=== PATIENT | female | born 1980 | race Caucasian/White ===

== ENCOUNTER 2017-09-29 11:04 | Emergency (ER) | payer OTHER ==
[2017-09-29] MEDS: HYDROCODONE/APAP (10/325) TAB PO (11:43)
[2017-09-29] MEDS: IBUPROFEN 800 MG TAB PO (11:43)
[2017-09-29] MEDS: ONDANSETRON (ODT) 4 MG TAB ODT (11:43)
== END 2017-09-29 12:11 | disposition home or self-care (01) ==
LOC: FTE 11:04
DX: K02.9 Dental caries, unspecified (principal); Z87.891 Personal history of nicotine dependence
CPT/HCPCS: 99284; Z7502